=== PATIENT | male | born 1940 | race Caucasian/White ===

== ENCOUNTER 2024-03-12 15:26 | Emergency (ER) | payer BC ==
[~2024-03-12] VITALS: Ht 167.6 cm; Wt 115.0 kg
[2024-03-12 15:35] VITALS: BP 102/48; PULSE 60; RESP 18; O2SAT 100
[2024-03-12] MEDS ORDERED: HYDROCODONE/ACETAMINOPHEN 5/325MG TABLET PO ONE (17:15)
[2024-03-12] MEDS: LIDOCAINE 5% PATCH TOP SCH (19:42)
[2024-03-12] MEDS: HYDROCODONE/ACETAMINOPHEN 5/325MG TABLET PO NR (19:42)
[2024-03-12] MEDS ORDERED: ACET-2708 MT (19:44)
[2024-03-12] MEDS ORDERED: IBUP-2028 MT (19:44)
== END 2024-03-12 20:04 | disposition home or self-care (01) ==
LOC: ER 15:26
DX: S42.202A Unspecified fracture of upper end of left humerus, initial encounter for closed fracture (principal); R51.9 Headache, unspecified; E78.00 Pure hypercholesterolemia, unspecified; E11.9 Type 2 diabetes mellitus without complications; I10 Essential (primary) hypertension; W18.30XA Fall on same level, unspecified, initial encounter; Y93.89 Activity, other specified; Y92.89 Other specified places as the place of occurrence of the external cause; Y99.8 Other external cause status
CPT/HCPCS: 73030; 99284